=== PATIENT | female | born 1995 | race African-American/Black ===

== ENCOUNTER 2025-03-25 08:00 | Emergency (ER) | payer SELFPAY ==
[2025-03-25] MEDS ORDERED: NA CHLORIDE 0.9% 1,000 ML ONE (08:35)
[2025-03-25 08:49] LABS: Absolute Lymphocytes (CBC) 1.9 K/uL (0.7-4.9); Hematocrit 39.1 % (36.0-45.0); Hemoglobin 13.4 g/dL (12.0-15.0); MCH 30.0 pg (27.0-35.0); MCHC 34.3 g/dL (32.0-36.0); MCV 87.3 fL (80-100); MPV 8.8 fL (7.6-11.3); Nucleated RBC Absolute Count 0.0 (0-0); Nucleated Red Blood Cells % 0.1 % (0-0); RBC Red Blood Cell Count 4.48 M/uL (3.86-4.86); White Blood Count 5.30 thou/uL (4.3-10.9)
[2025-03-25 08:50] LABS: Sqamous Epithelial <5 /HPF (None Seen); Urine Crystals Unidentified Few /HPF (None Seen); Urine Culture Reflex Order NOT NEEDED; Urine Microscopic Reflex YN ORDER UMIC; Urine WBC Clump Rare /HPF (None Seen); Urine Yeast (Budding) Trace /HPF (None Seen)
--- NOTE | 2025-03-25 08:50 | ER ---
Nurse's Notes [facility] Name: Danielle Tucker Age: 30 yrs Sex: Female : 1995 Arrival Date: 03/25/2025 Time: 08:00 Bed 16 Private MD: Diagnosis: Cocaine abuse;Other depressive episodes;Suicidal ideations-resolved;Adjustment disorder with mixed anxiety and depressed mood;UTI/ Urinary tract infection, site not specified Presentation: 03/25 08:19 Chief complaint: Patient states: Got kicked out of [employer] [employer] for not cooperating [facility] with classes and fighting with staff. SI, states she took 4 Seroquel last night. Reports dysuria, "I think I have a UTI". Coronavirus screen: Client denies travel out of the [place] in the last 14 days. At this time, the client does not indicate any symptoms associated with coronavirus-19. Ebola Screen: Patient denies travel to an Ebola-affected area in the 21 days before illness onset. Initial Sepsis Screen: Does the patient meet any 2 criteria? No. Patient's initial sepsis screen is negative. Does the patient have a suspected source of infection? No. Patient's initial sepsis screen is negative. Risk Assessment: Do you want to hurt yourself or someone else? Patient reports no desire to harm self or others. Onset of symptoms was March 25, 2025. 08:19 Method Of Arrival: Ambulatory ll1 08:19 Acuity: PADMA 2 ll1 Triage Assessment: 12:05 General: Appears in no apparent distress. Behavior is calm, cooperative. Pain: Denies kj2 pain. Neuro: Level of Consciousness is awake, alert, obeys commands, Oriented to person, place, time, situation. Cardiovascular: Patient's skin is warm and dry. Respiratory: Airway is patent Respiratory effort is unlabored. GI: No signs and/or symptoms were reported involving the gastrointestinal system. : No signs and/or symptoms were reported regarding the genitourinary system. 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 - Infectious Disease History:: Denies. - Social history:: Smoking status: Patient reports the use of cigarette tobacco products, smokes one-half pack cigarettes per day, Reported history of juuling and/or vaping. Screenin:47 [facility] ED Fall Risk Assessment (Adult) History of falling in the last 3 months, cm10 including since admission No falls in past 3 months (0 pts) Confusion or Disorientation No (0 pts) Intoxicated or Sedated No (0 pts) Impaired Gait No (0 pts) Mobility Assist Device Used No (0 pt) Altered Elimination No (0 pt) Score/Fall Risk Level 0 - 2 = Low Risk Oriented to surroundings, Maintained a safe environment, Hourly rounding (assess needs \\T\\ fall precautionary measures) done. Abuse screen: Denies threats or abuse. Denies injuries from another. Nutritional screening: No deficits noted. Tuberculosis screening: No symptoms or risk factors identified. Assessment: 09:36 General: POISON CONTROL CONTACTED AT THIS TIME. CASE #[id number]. PER ARIANE MONITOR cm10 PATIENT FOR 4-6 HOURS FROM THE TIME OF ADMISSION. DO TOXICOLOGY WORK UP.. 10:58 Reassessment: Patient appears in no apparent distress at this time. Patient and/or cm10 family updated on plan of care and expected duration. Pain level reassessed. Patient is alert, oriented x 3, equal unlabored respirations, skin warm/dry/pink. 12:05 General: Appears in no apparent distress. Behavior is cooperative. Pain: Denies pain. kj2 Neuro: Level of Consciousness is awake, alert, obeys commands, Oriented to person, place, time, situation. Cardiovascular: Patient's skin is warm and dry. Respiratory: Airway is patent Respiratory effort is unlabored. GI: No signs and/or symptoms were reported involving the gastrointestinal system. : No signs and/or symptoms were reported regarding the genitourinary system. 12:40 Reassessment: Patient appears in no apparent distress at this time. Patient and/or kj2 family updated on plan of care and expected duration. Pain level reassessed. Patient is alert, oriented x 3, equal unlabored respirations, skin warm/dry/pink. Psych: 08:19 [place] Suicide Severity Screening: In the past month, have you wished you were cm10 or wished you could go to sleep and not wake up? Patient responds "yes." Based off the client's responses additional C-SSRS screening is required. "In the past month, have you actually had any thoughts of killing yourself?" Patient responds "yes." Based off the client's response additional [place] suicide severity screening questions to be further documented on paper forms. "In your lifetime, have you ever done anything, started to do anything, or prepared to do anything to end your life?" Patient responds "yes.". Subjective: Delusions are denied, Hallucinations are denied Having thoughts of suicide. Plan for suicide is overdose on pills. Objective: Patient is cooperative, Speech is normal, Affect is appropriate. Interventions: Removed personal items and placed in bag. Patient placed in hospital gown. Searched person for dangerous items. Urine collected and sent for urine drug test. Belonging list filled out. Safety Checks: Personal items have been removed. Door is open. No visitors are present at this time. Pt denies substance abuse. Commitment: Patient will be a voluntary commitment. Vital Signs: 08:19 BP 105 / 67; Pulse 57; Resp 17; Temp 97.1; Pulse Ox 98% on R/A; Weight 65.77 kg; Height ll1 5 ft. 4 in. ; Pain 0/10; 12:39 BP 107 / 68; Pulse 68; Resp 18; Temp 98; Pulse Ox 100% on R/A; kj2 08:19 Body Mass Index 24.89 (65.77 kg, 162.56 cm) ll1 08:19 Pain Scale: Adult ll1 ED Course: 08:03 Patient arrived in ED. im 08:03 Eris Huggins MD is Attending Physician. malu 08:08 Vicky Mary, RN is Primary Nurse. cm10 08:15 Arm band placed on Patient placed in an exam room, on a stretcher. ll1 08:22 Triage completed. ll1 08:46 Patient has correct armband on for positive identification. Bed in low position. Call cm10 light in reach. Side rails up X 1. Valuables inventory done. Locked in safe. See valuables checklist. Sitter at bedside. Warm blanket given. Pillow given. 08:46 Acetaminophen Sent. cm10 08:46 Basic Metabolic Panel Sent. cm10 08:46 CBC with Diff Sent. cm10 08:46 ETOH Level Sent. cm10 08:46 Hepatic Function Sent. cm10 08:46 PT-INR Sent. cm10 08:46 Test, Urine Sent. cm10 08:46 Ptt, Activated Sent. cm10 08:46 Salicylate Sent. cm10 08:46 Urine Drug Screen Sent. cm10 08:47 Initial lab(s) drawn, by nm, sent to lab. Urine collected: clean catch specimen. cm10 Inserted saline lock: 20 gauge in left antecubital area, using aseptic technique. Blood collected. Flushed with 10 mL NS. 10:01 contacted [facility] to have a screener evaluate pt. bd 11:26 Zonia with [facility] here. 6 12:05 Provided Education on: CALL LIGHT. kj2 12:08 Tico Arevalo MD is Referral Physician. malu 12:09 Report given to TONIO Garcia. cm10 12:18 Radha Blanco RN is Primary Nurse. kj2 12:20 No provider procedures requiring assistance completed. IV discontinued, intact, kj2 bleeding controlled, No redness/swelling at site. Pressure dressing applied. Administered Medications: 08:46 Drug: NS 0.9% IV 1000 ml IV at 1000 ml once; to be given as a bolus over 60 minutes cm10 Route: IV; Rate: 1000 ml; Site: left antecubital; 10:33 Follow up: Response: No adverse reaction; IV Status: Completed infusion; IV Intake: cm10 1000ml 10:56 Drug: Rocephin IV 1 grams IV at per protocol once; Given slow IV push per pharmacy cm10 instructions Route: IV; Rate: per protocol; Site: left antecubital; 12:20 Follow up: IV Status: Completed infusion; IV Intake: 10ml kj2 10:56 Drug: Potassium PO Effervescent Tablet 25 mEq PO once; dissolve in 4 ounces of water or cm10 juice Route: PO; 12:19 Follow up: Response: No adverse reaction kj2 Medication: 08:47 VIS not applicable for this client. cm10 Intake: 10:33 IV: 1000ml; Total: 1000ml. cm10 12:20 IV: 10ml; Total: 1010ml. kj2 Outcome: 08:49 ER care complete, transfer ordered by . malu 12:09 Discharge ordered by . malu 12:20 Discharged to home ambulatory, kj2 12:20 Condition: stable 12:20 Discharge instructions given to patient, Instructed on discharge instructions, follow up and referral plans. Demonstrated understanding of instructions, follow-up care, medications, Prescriptions given X 1, 12:41 Patient left the ED. kj2 Signatures: Susan Deleon Corey, MD MD cha Lewis, Lynsay, RN RN ll1 Keli Robertson6 Rebekah Quintero Clarissa, RN RN cm10 Radha Blanco RN RN kj2
--- NOTE | 2025-03-25 08:50 | EDPHYS ---
Physician Documentation [facility] Name: Danielle Tucker Age: 30 yrs Sex: Female : 1995 Arrival Date: 03/25/2025 Time: 08:00 Bed 16 Private MD: ED Physician Eris Huggins HPI: 03/25 08:35 This 30 yrs old Black Female presents to ER via Ambulatory with complaints of Suicidal malu Ideation. 08:35 The patient presents to the emergency department with anxiety, depression, over unknown malu circumstances, suicide ideation. Onset: The symptoms/episode began/occurred 3 day(s) ago. Past psychiatric history: Prior diagnosis: depression. Associated signs and symptoms: The patient has no apparent associated signs or symptoms. Severity of symptoms: At their worst the symptoms were moderate in the emergency department the symptoms are unchanged. The patient has experienced similar episodes in the past, multiple times. 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 - Infectious Disease History:: Denies. - Social history:: Smoking status: Patient reports the use of cigarette tobacco products, smokes one-half pack cigarettes per day, Reported history of juuling and/or vaping. ROS: 08:39 Constitutional: Negative for fever, chills, and weight loss, Eyes: Negative for injury, malu pain, redness, and discharge, ENT: Negative for injury, pain, and discharge, Cardiovascular: Negative for chest pain, palpitations, and edema, Respiratory: Negative for shortness of breath, cough, wheezing, and pleuritic chest pain, Abdomen/GI: Negative for abdominal pain, nausea, vomiting, diarrhea, and constipation, Back: Negative for injury and pain, : Negative for injury, bleeding, discharge, and swelling, MS/Extremity: Negative for injury and deformity, Skin: Negative for injury, rash, and discoloration, Neuro: Negative for headache, weakness, numbness, tingling, and seizure, Psych: Negative for depression, anxiety, suicide ideation, homicidal ideation, and hallucinations, Allergy/Immunology: Negative for hives, rash, and allergies, Endocrine: Negative for neck swelling, polydipsia, polyuria, polyphagia, and marked weight changes, 08:39 Neck: Positive for pain with movement, tenderness, of the back of neck and scalp, Exam: 08:39 Constitutional: This is a well developed, well nourished patient who is awake, alert, malu and in no acute distress. Head/Face: Normocephalic, atraumatic. Eyes: Pupils equal round and reactive to light, extra-ocular motions intact. Lids and lashes normal. Conjunctiva and sclera are non-icteric and not injected. Cornea within normal limits. Periorbital areas with no swelling, redness, or edema. ENT: Nares patent. No nasal discharge, no septal abnormalities noted. Tympanic membranes are normal and external auditory canals are clear. Oropharynx with no redness, swelling, or masses, exudates, or evidence of obstruction, uvula midline. Mucous membranes moist. Chest/axilla: Normal chest wall appearance and motion. Nontender with no deformity. No lesions are appreciated. Cardiovascular: Regular rate and rhythm with a normal S1 and S2. No gallops, murmurs, or rubs. Normal PMI, no JVD. No pulse deficits. Respiratory: Lungs have equal breath sounds bilaterally, clear to auscultation and percussion. No rales, rhonchi or wheezes noted. No increased work of breathing, no retractions or nasal flaring. Abdomen/GI: Soft, non-tender, with normal bowel sounds. No distension or tympany. No guarding or rebound. No evidence of tenderness throughout. Back: No spinal tenderness. No costovertebral tenderness. Full range of motion. Skin: Warm, dry with normal turgor. Normal color with no rashes, no lesions, and no evidence of cellulitis. MS/ Extremity: Pulses equal, no cyanosis. Neurovascular intact. Full, normal range of motion., bilateral aka Neuro: Awake and alert, GCS 15, oriented to person, place, time, and situation. Cranial nerves II-XII grossly intact. Motor strength 5/5 in all extremities. Sensory grossly intact. Cerebellar exam normal. Normal gait. 08:39 Neck: External neck: is normal, no acute changes, ROM/movement: limited range of motion, that is mild, that is moderate, in any direction, Meningeal signs: are not present, Kernig's sign is negative, Brudzinski's sign is negative, nuchal rigidity, is not appreciated, Lymph nodes: no appreciated lymphadenopathy, 09:03 ECG was reviewed by the Attending Physician. [facility] Vital Signs: 08:19 BP 105 / 67; Pulse 57; Resp 17; Temp 97.1; Pulse Ox 98% on R/A; Weight 65.77 kg; Height ll1 5 ft. 4 in. ; Pain 0/10; 12:39 BP 107 / 68; Pulse 68; Resp 18; Temp 98; Pulse Ox 100% on R/A; kj2 08:19 Body Mass Index 24.89 (65.77 kg, 162.56 cm) ll1 08:19 Pain Scale: Adult ll1 MDM: 08:04 Medical Screening Exam initiated malu 08:49 Differential diagnosis: drug withdrawal. acute psychotic break, depression, psychosis malu secondary to non-compliance. Differential Diagnosis altered mental status. Data reviewed: vital signs, nurses notes, EMS record, lab test result(s), EKG, radiologic studies, plain films. Consideration of Admission/Observation Escalation of care including admission/observation considered. I considered the following discharge prescriptions or medication management in the emergency department Medications were administered in the Emergency Department. See MAR. Independent interpretation of the following test(s) in the Emergency Department EKG: See my EKG interpretation above. Test considered but Not performed: CT: no ct head. Care significantly affected by the following chronic conditions: Diabetes, siezure. 03/25 08:04 Order name: Acetaminophen; Complete Time: 09:39 [facility] 03/25 08:04 Order name: Basic Metabolic Panel; Complete Time: 09:39 [facility] 03/25 08:04 Order name: CBC with Diff; Complete Time: 09:39 [facility] 03/25 08:04 Order name: ETOH Level; Complete Time: 09:39 [facility] 03/25 08:04 Order name: Hepatic Function; Complete Time: 09:39 [facility] 03/25 08:04 Order name: PT-INR; Complete Time: 09:39 [facility] 03/25 08:04 Order name: Test, Urine; Complete Time: 09:39 [facility] 03/25 08:04 Order name: Ptt, Activated; Complete Time: 09:39 [facility] 03/25 08:04 Order name: Salicylate; Complete Time: 09:39 [facility] 03/25 08:04 Order name: Urine Drug Screen; Complete Time: 09:39 [facility] 03/25 08:04 Order name: UA Rfx Ernst Cult if indicated; Complete Time: 09:39 [facility] 03/25 08:04 Order name: EKG - Nurse/Tech; Complete Time: 09:20 [facility] 03/25 08:04 Order name: IV Saline Lock; Complete Time: 08:46 [facility] 03/25 08:04 Order name: Labs collected and sent; Complete Time: 08:46 [facility] 03/25 08:04 Order name: Suicide Precautions; Complete Time: 08:46 [facility] 03/25 08:04 Order name: Suicide Screening ([place]); Complete Time: 08:46 [facility] EC:03 Rate is 50 beats/min. Rhythm is regular. QRS [place] is Normal. ID interval is normal. QRS malu interval is normal. QT interval is normal. No Q waves. T waves are Normal. No ST changes noted. Clinical impression: Sinus bradycardia and No evidence of ischemia. Interpreted by me. Reviewed by me. Administered Medications: 08:46 Drug: NS 0.9% IV 1000 ml IV at 1000 ml once; to be given as a bolus over 60 minutes cm10 Route: IV; Rate: 1000 ml; Site: left antecubital; 10:33 Follow up: Response: No adverse reaction; IV Status: Completed infusion; IV Intake: cm10 1000ml 10:56 Drug: Rocephin IV 1 grams IV at per protocol once; Given slow IV push per pharmacy cm10 instructions Route: IV; Rate: per protocol; Site: left antecubital; 12:20 Follow up: IV Status: Completed infusion; IV Intake: 10ml kj2 10:56 Drug: Potassium PO Effervescent Tablet 25 mEq PO once; dissolve in 4 ounces of water or cm10 juice Route: PO; 12:19 Follow up: Response: No adverse reaction kj2 Disposition Summary: 03/25/25 12:09 Discharge Ordered Notes: Location: Home malu Problem: new(03/25/25 12:09) malu Symptoms: have improved(03/25/25 12:09) malu Condition: Stable(03/25/25 12:09) malu Diagnosis - Cocaine abuse malu - Other depressive episodes malu - Suicidal ideations - resolved(03/25/25 12:09) malu - Adjustment disorder with mixed anxiety and depressed mood malu - UTI/ Urinary tract infection, site not specified(03/25/25 12:09) malu Followup: malu - With: Private Physician - When: 2 - 3 days - Reason: Recheck today's complaints, Continuance of care, Re-evaluation by your physician Followup: malu - With: Tico Arevalo MD - When: 2 - 3 days - Reason: Recheck today's complaints, Re-evaluation by your physician Discharge Instructions: - Discharge Summary Sheet malu - Adjustment Disorder, Adult malu - Cocaine Use Disorder malu - Substance Use Disorder malu - Urinary Tract Infection, Adult malu - Suicidal Feelings: How to Help Yourself malu - Helping Someone Who is Suicidal malu - Urinary Tract Infection, Adult, [id number] malu - Substance Use Disorder and Mental Illness [facility] Forms: - Medication Reconciliation Form malu - Antibiotic Education malu - Prescription Opioid Use malu - Patient Portal Instructions [facility] - Leadership Thank You Letter [facility] Prescriptions: - Bactrim DS 800-160 mg Oral tablet - take 1 tablet ORAL route every 12 hours for 5 days; 10 tablet; Refills: 0, malu Product Selection Permitted Signatures: Dispatcher [employer] EDMS Eris Huggins MD MD cha Lewis, Lynsay, RN RN ll1 Vicky Mary RN RN cm10 Radha Blanco, RN RN kj2 Corrections: (The following items were deleted from the chart) 08:05 08:05 ACETAMINOPHEN+C.LAB.BRZ ordered. EDMS EDMS 08:05 08:05 BASIC METABOLIC PANEL+C.LAB.BRZ ordered. EDMS EDMS 08:05 08:05 CBC+H.LAB.BRZ ordered. EDMS EDMS 08:05 08:05 ETHANOL+C.LAB.BRZ ordered. EDMS EDMS 08:05 08:05 HEPATIC FUNCTION+C.LAB.BRZ ordered. EDMS EDMS 08:05 08:05 PROTIME (+INR)+COAG.LAB.BRZ ordered. EDMS EDMS 08:05 08:05 Test, Urine+UC.LAB.BRZ ordered. EDMS EDMS 08:05 08:05 PTT, ACTIVATED+COAG.LAB.BRZ ordered. EDMS EDMS 08:05 08:05 SALICYLATE+C.LAB.BRZ ordered. EDMS EDMS 08:05 08:05 URINE DRUG SCREEN+UC.LAB.BRZ ordered. EDMS EDMS 08:05 08:05 UA Rfx Ernst Cult if indicated+U.LAB.BRZ ordered. EDMS EDMS 09:40 08:49 to psych [facility] : 08:49 Psych Facility [facility] : 08:49 Higher level of care [facility] 12: 08:49 Stable [facility] : 08:49 new [facility] : 08:49 have improved [facility] : 08:49 Suicidal ideations [facility] : 08:49 Major depressive disorder, recurrent, moderate [facility] : 09:40 to psych [facility] 12: 09:40 Hypokalemia [facility] 12: 09:40 UTI/ Urinary tract infection, site not specified [facility]
[2025-03-25 08:57] LABS: PT Prothrombin Time 14.3 SECONDS (10-13.0); PTT, Activated Partial Thromb 37.2 SECONDS (27.2-37.4); Protime INR 1.27
[2025-03-25 09:06] LABS: ALT/SGPT 18 U/L (13-56); Albumin 4.1 g/dL (3.4-5.0); Albumin/Globulin Ratio 1.1 (1.1-1.8); Alkaline Phosphatase 51 U/L (45-117); Anion Gap 8.4 mEq/L (5.0-15.0); BUN Blood Urea Nitrogen 11 mg/dL (7-18); Bilirubin Indirect, Calculated 0.5 mg/dL (0.2-0.8); Globulin 3.9 g/dL (2.3-3.5); Glucose Level 87 mg/dL (74-106); Potassium 3.4 mEq/L (3.5-5.1)
[2025-03-25 09:07] LABS: AST/SGOT < 10 U/L (15-37)
[2025-03-25 09:12] LABS: METHAMPHETAM NEGATIVE (NEGATIVE); THC Cannibis POSITIVE (NEGATIVE)
[2025-03-25] MEDS ORDERED: CEFTRIAXONE 1000 MG/VIAL ONE (10:44)
[2025-03-25] MEDS ORDERED: POTASSIUM 25 MEQ EFFERV TAB ONE (10:44)
[2025-03-25] MEDS ORDERED: NA CHLORIDE 0.9% 50 ML ONE (10:45)
[2025-03-25 19:01] VITALS: BP 107/68; TEMP 98; O2SAT 100
== END 2025-03-25 12:41 | disposition home or self-care (01) ==
LOC: ER 08:00
DX: F14.10 Cocaine abuse, uncomplicated (principal); F32.89 Other specified depressive episodes; F43.23 Adjustment disorder with mixed anxiety and depressed mood; N39.0 Urinary tract infection, site not specified
CPT/HCPCS: 36415; 80048; 80076; 80143; 80179; 80307; 81001; 81025; 82077; 85025; 85610; 85730; 93005; J0696; J7030